=== PATIENT | male | born 1980 | race Caucasian/White ===

== ENCOUNTER → 2016-10-10 | Outpatient (REF) | payer OTHER ==
[~2016-10-10] MED LIST: VICO5TAB PO
== END | disposition home or self-care (01) ==
LOC: M LAB REF 13:00
PROVIDERS: ATTEND Nurse Practitioner Adult Health
DX: R50.9 Fever, unspecified (principal)

== ENCOUNTER 2016-10-11 10:13 | Emergency (ER) | payer OTHER ==
--- NOTE | 2016-10-11 11:05 | EDDOCDS ---
Nurse's Notes [facility] Name: Prince Huffman Age: 36 yrs Sex: Male : 1980 Arrival Date: 10/11/2016 Time: 10:13 Bed Triage 3 Private MD: Myla Soto Diagnosis: Pneumonia due to other infectious organisms, not elsewhere classified Presentation: 10/11 10:21 Presenting complaint: Patient states: Was diagnosed with pneumonia yesterday and feels jo3 worse today. Adult Sepsis Screening: The patient does not have new or worsening altered mentation. Patient's respiratory rate is less than 22. Systolic blood pressure is greater than 100. Patient has a qSOFA score of 0- Negative Sepsis Screen. Suicide/Homicide risk assessment- the patient denies having any suicidal and/or homicidal ideations and does not present with any other emotional, behavioral or mental health complaints. Status: Patient is not a customer service attendant or dependent. Transition of care: patient was not received from another setting of care. 10:21 Acuity: PING Level 3 jo3 10:21 Method Of Arrival: Walkin/Carried/Asstd jo3 Triage Assessment: 10:24 General: Appears in no apparent distress, Behavior is appropriate for age, cooperative. jo3 HIV screening NA for this visit Offered previously. Neurological: Level of Consciousness is awake, alert, Oriented to person, place, time. Respiratory: Airway is patent Respiratory effort is even, unlabored. Historical: - Allergies: No known drug Allergies; - Home Meds: 1. moxifloxacin 400 mg oral tab 1 tab once daily 2. Mucinex DM 30-600 mg oral Tb12 1 tab every 12 hours 3. nyquil as needed - PMHx: none; - PSHx: Appendectomy; left foot (club foot); - Social history: Smoking status: Patient states was never smoker of tobacco. No barriers to communication noted, The patient speaks fluent Maltese, Speaks appropriately for age. - Family history: Not pertinent. - : The pt / caregiver states he / she is not on anticoagulants. Home medication list is obtained from the patient. - Exposure Risk Screening:: None identified. Screenin:02 Screening information is obtained from the patient. Fall risk: No risks identified. jo3 Assistance ADL's: requires no assistance with activities of daily living. Abuse/DV Screen: The patient / caregiver reports he/she is: not in a situation that causes fear, pain or injury. Nutritional screening: No deficits noted. Advance Directives: There is no active DNR order. home support is adequate. Assessment: 11:02 General: Appears in no apparent distress, comfortable, Behavior is appropriate for age, jo3 cooperative. Neurological: No deficits noted. Respiratory: Airway is patent Respiratory effort is even, unlabored. Derm: Skin is pink, warm & dry. normal. Vital Signs: 10:15 BP 120 / 89; Pulse 84; Resp 20; Temp 98.0(O); Pulse Ox 100% on R/A; Weight 101.6 kg elp (R); Height 6 ft. 0 in. (182.88 cm) (R); Pain 8/10; 10:15 Body Mass Index 30.38 (101.60 kg, 182.88 cm) elp Vitals: 10:15 Log In Time: October 11, 2016 at 10:10. elp ED Course: 10:14 Patient visited by Hannah Polanco PCA. elp 10:14 Myla Soto is Private Physician. elp 10:14 Patient moved to Waiting elp 10:16 Patient visited by Hannah Polanco PCA. elp 10:16 Patient moved to Pre RCE elp 10:22 Triage Initiated jo3 10:24 Patient visited by Jennifer Sharma RN. jo3 10:43 Patient moved to Triage 3 jo3 10:46 [facility] btw 10:46 Josefina Manzano MD is Attending Physician. btw 10:46 Patient visited by Ishan Steven PA. btw 10:56 Myla Soto is Referral Physician. btw 11:02 The patient / caregiver is instructed regarding the plan of care and ED course. jo3 11:02 No IV's were initiated during this patient's visit. No procedures done that require jo3 assistance. 11:04 [facility] [place] was [place] into [employer] and attached to record. jp5 Order Results: There are currently no results for this order. Outcome: 10:57 Discharge ordered by Provider. btw 11:02 Discharge Assessment: Patient awake, alert and oriented x 3. No cognitive and/or jo3 functional deficits noted. Patient verbalized understanding of disposition instructions. patient administered narcotics - no. The following High Risk Discharge criteria are identified: None. Discharged to home ambulatory. Condition: stable. Discharge instructions given to patient, Instructed on discharge instructions, follow up and referral plans. medication usage, Demonstrated understanding of instructions, medications, Pt was receptive of discharge instructions/ teaching. Prescriptions given X 1. No special radiology studies were completed. Property sent home with patient. 11:04 Patient left the ED. jo3 Signatures: Jennifer Sharma RN RN jo3 Ishan Steven PA PA btw Patchen, Erin, MAICOL [employer] POL[employer]ER Brenda Devine jp5 MTDD
--- NOTE | 2016-10-11 11:05 | EDDOCDS ---
Physician Documentation [facility] Name: Prince Huffman Age: 36 yrs Sex: Male : 1980 Arrival Date: 10/11/2016 Time: 10:13 Bed Triage 3 Private MD: Myla Soto Disposition: 10/11/16 10:57 Discharged to Home/Self Care. Impression: Pneumonia due to other infectious organisms, not elsewhere classified. - Condition is Stable. - Discharge Instructions: Pneumonia, Adult, [id number]. - Prescriptions for Medrol (Antonio) 4 mg Oral Tablets, Dose Pack - take 1 Pack by ORAL route as directed - follow package instructions; 1 packet. - Medication Reconciliation, Local Pharmacy Hours form. - Follow up: Myla Soto; When: Call to arrange an appointment; Reason: Further diagnostic work-up, Recheck today's complaints, Continuance of care. - Problem is an ongoing problem. - Symptoms are unchanged. Historical: - Allergies: No known drug Allergies; - Home Meds: 1. moxifloxacin 400 mg oral tab 1 tab once daily 2. Mucinex DM 30-600 mg oral Tb12 1 tab every 12 hours 3. nyquil as needed - PMHx: none; - PSHx: Appendectomy; left foot (club foot); - Social history: Smoking status: Patient states was never smoker of tobacco. No barriers to communication noted, The patient speaks fluent Ukrainian, Speaks appropriately for age. - Family history: Not pertinent. - : The pt / caregiver states he / she is not on anticoagulants. Home medication list is obtained from the patient. - Exposure Risk Screening:: None identified. Vital Signs: 10/11 10:15 BP 120 / 89; Pulse 84; Resp 20; Temp 98.0(O); Pulse Ox 100% on R/A; Weight 101.6 kg / elp 223.99 lbs (R); Height 6 ft. 0 in. (182.88 cm) (R); Pain 8/10; 10:15 Body Mass Index 30.38 (101.60 kg, 182.88 cm) elp MDM: 11:04 ON LICENSE OF [facility] Payment Agreement was scanned into [employer] and attached to record. jp5 11:04 Financial registration complete. jp5 Signatures: Jennifer Sharma,RN RN jo3 Ishan Steven PA PA btw Price, Jennalee jp5 The chart was reviewed and I authenticate all verbal orders and agree with the evaluation and treatment provided.Attachments: 11:04 ON LICENSE OF [facility] Payment Agreement jp5 MTDD
--- NOTE | 2016-10-13 12:04 | EDDOCDS ---
Physician Documentation [facility] Name: Prince Huffman Age: 36 yrs Sex: Male : 1980 Arrival Date: 10/11/2016 Time: 10:13 Bed Triage 3 Private MD: Myla Soto Disposition: 10/11/16 10:57 Discharged to Home/Self Care. Impression: Pneumonia due to other infectious organisms, not elsewhere classified. - Condition is Stable. - Discharge Instructions: Pneumonia, Adult, [id number]. - Prescriptions for Medrol (Antonio) 4 mg Oral Tablets, Dose Pack - take 1 Pack by ORAL route as directed - follow package instructions; 1 packet. - Medication Reconciliation, Local Pharmacy Hours form. - Follow up: Myla Soto; When: Call to arrange an appointment; Reason: Further diagnostic work-up, Recheck today's complaints, Continuance of care. - Problem is an ongoing problem. - Symptoms are unchanged. Historical: - Allergies: No known drug Allergies; - Home Meds: 1. moxifloxacin 400 mg oral tab 1 tab once daily 2. Mucinex DM 30-600 mg oral Tb12 1 tab every 12 hours 3. nyquil as needed - PMHx: none; - PSHx: Appendectomy; left foot (club foot); - Social history: Smoking status: Patient states was never smoker of tobacco. No barriers to communication noted, The patient speaks fluent Tuvaluan, Speaks appropriately for age. - Family history: Not pertinent. - : The pt / caregiver states he / she is not on anticoagulants. Home medication list is obtained from the patient. - Exposure Risk Screening:: None identified. Vital Signs: 10/11 10:15 BP 120 / 89; Pulse 84; Resp 20; Temp 98.0(O); Pulse Ox 100% on R/A; Weight 101.6 kg / elp 223.99 lbs (R); Height 6 ft. 0 in. (182.88 cm) (R); Pain 8/10; 10:15 Body Mass Index 30.38 (101.60 kg, 182.88 cm) elp MDM: 11:04 [facility] Payment Agreement was scanned into Plink and attached to record. jp5 11:04 Financial registration complete. jp5 10/12 09:22 T-Sheet-- Draft Copy was scanned into Plink and attached to record. gb Signatures: Terri Uribe, Reg Reg Jennifer Contreras RN RN Ishan Ariza PA PA btw Price, Jennalee jp5 The chart was reviewed and I authenticate all verbal orders and agree with the evaluation and treatment provided.Attachments: 10/11 11:04 [facility] Payment Agreement jp5 10/12 09:22 T-Sheet-- Draft Copy gb Chart Complete MTDD
--- NOTE | 2016-10-13 12:04 | EDDOCDS ---
Nurse's Notes [facility] Name: Prince Huffman Age: 36 yrs Sex: Male : 1980 Arrival Date: 10/11/2016 Time: 10:13 Bed Triage 3 Private MD: Myla Soto Diagnosis: Pneumonia due to other infectious organisms, not elsewhere classified Presentation: 10/11 10:21 Presenting complaint: Patient states: Was diagnosed with pneumonia yesterday and feels jo3 worse today. Adult Sepsis Screening: The patient does not have new or worsening altered mentation. Patient's respiratory rate is less than 22. Systolic blood pressure is greater than 100. Patient has a qSOFA score of 0- Negative Sepsis Screen. Suicide/Homicide risk assessment- the patient denies having any suicidal and/or homicidal ideations and does not present with any other emotional, behavioral or mental health complaints. Status: Patient is not a surgical services asst or dependent. Transition of care: patient was not received from another setting of care. 10:21 Acuity: PING Level 3 jo3 10:21 Method Of Arrival: Walkin/Carried/Asstd jo3 Triage Assessment: 10:24 General: Appears in no apparent distress, Behavior is appropriate for age, cooperative. jo3 HIV screening NA for this visit Offered previously. Neurological: Level of Consciousness is awake, alert, Oriented to person, place, time. Respiratory: Airway is patent Respiratory effort is even, unlabored. Historical: - Allergies: No known drug Allergies; - Home Meds: 1. moxifloxacin 400 mg oral tab 1 tab once daily 2. Mucinex DM 30-600 mg oral Tb12 1 tab every 12 hours 3. nyquil as needed - PMHx: none; - PSHx: Appendectomy; left foot (club foot); - Social history: Smoking status: Patient states was never smoker of tobacco. No barriers to communication noted, The patient speaks fluent Mohawk, Speaks appropriately for age. - Family history: Not pertinent. - : The pt / caregiver states he / she is not on anticoagulants. Home medication list is obtained from the patient. - Exposure Risk Screening:: None identified. Screenin:02 Screening information is obtained from the patient. Fall risk: No risks identified. jo3 Assistance ADL's: requires no assistance with activities of daily living. Abuse/DV Screen: The patient / caregiver reports he/she is: not in a situation that causes fear, pain or injury. Nutritional screening: No deficits noted. Advance Directives: There is no active DNR order. home support is adequate. Assessment: 11:02 General: Appears in no apparent distress, comfortable, Behavior is appropriate for age, jo3 cooperative. Neurological: No deficits noted. Respiratory: Airway is patent Respiratory effort is even, unlabored. Derm: Skin is pink, warm & dry. normal. Vital Signs: 10:15 BP 120 / 89; Pulse 84; Resp 20; Temp 98.0(O); Pulse Ox 100% on R/A; Weight 101.6 kg elp (R); Height 6 ft. 0 in. (182.88 cm) (R); Pain 8/10; 10:15 Body Mass Index 30.38 (101.60 kg, 182.88 cm) elp Vitals: 10:15 Log In Time: October 11, 2016 at 10:10. elp ED Course: 10:14 Patient visited by Hannah Polanco PCA. elp 10:14 Myla Soto is Private Physician. elp 10:14 Patient moved to Waiting elp 10:16 Patient visited by Hannah Polanco PCA. elp 10:16 Patient moved to Pre RCE elp 10:22 Triage Initiated jo3 10:24 Patient visited by Jennifer Sharma RN. jo3 10:43 Patient moved to Triage 3 jo3 10:46 [facility] btw 10:46 Josefina Manzano MD is Attending Physician. btw 10:46 Patient visited by Ishan Steven PA. btw 10:56 Myla Soto is Referral Physician. btw 11:02 The patient / caregiver is instructed regarding the plan of care and ED course. jo3 11:02 No IV's were initiated during this patient's visit. No procedures done that require jo3 assistance. 11:04 [facility] Payment Agreement was scanned into [employer] and attached to record. jp5 15:00 Patient name changed from Prince\S\M\S\Nathanael\S\ to Prince\S\Syed\S\Nathanael. EDMS 10/12 09:22 T-Sheet-- Draft Copy was scanned into [employer] and attached to record. gb Order Results: There are currently no results for this order. Outcome: 10/11 10:57 Discharge ordered by Provider. btw 11:02 Discharge Assessment: Patient awake, alert and oriented x 3. No cognitive and/or jo3 functional deficits noted. Patient verbalized understanding of disposition instructions. patient administered narcotics - no. The following High Risk Discharge criteria are identified: None. Discharged to home ambulatory. Condition: stable. Discharge instructions given to patient, Instructed on discharge instructions, follow up and referral plans. medication usage, Demonstrated understanding of instructions, medications, Pt was receptive of discharge instructions/ teaching. Prescriptions given X 1. No special radiology studies were completed. Property sent home with patient. 11:04 Patient left the ED. jo3 Signatures: Dispatcher [employer] EDMS Terri Uribe, Reg Reg Jennifer Contreras,RN RN jo3 Ishan Steven PA PA btw Hannah Polanco PCA PCA elp Price, Jennalee jp5 Chart Complete JENNIFER
--- NOTE | 2016-10-13 12:04 | EDDOCDS ---
Physician Documentation [facility] Name: Prince Huffman Age: 36 yrs Sex: Male : 1980 Arrival Date: 10/11/2016 Time: 10:13 Bed Triage 3 Private MD: Myla Soto Disposition: 10/11/16 10:57 Discharged to Home/Self Care. Impression: Pneumonia due to other infectious organisms, not elsewhere classified. - Condition is Stable. - Discharge Instructions: Pneumonia, Adult, [id number]. - Prescriptions for Medrol (Antonio) 4 mg Oral Tablets, Dose Pack - take 1 Pack by ORAL route as directed - follow package instructions; 1 packet. - Medication Reconciliation, Local Pharmacy Hours form. - Follow up: Myla Soto; When: Call to arrange an appointment; Reason: Further diagnostic work-up, Recheck today's complaints, Continuance of care. - Problem is an ongoing problem. - Symptoms are unchanged. Historical: - Allergies: No known drug Allergies; - Home Meds: 1. moxifloxacin 400 mg oral tab 1 tab once daily 2. Mucinex DM 30-600 mg oral Tb12 1 tab every 12 hours 3. nyquil as needed - PMHx: none; - PSHx: Appendectomy; left foot (club foot); - Social history: Smoking status: Patient states was never smoker of tobacco. No barriers to communication noted, The patient speaks fluent Chinese, Speaks appropriately for age. - Family history: Not pertinent. - : The pt / caregiver states he / she is not on anticoagulants. Home medication list is obtained from the patient. - Exposure Risk Screening:: None identified. Vital Signs: 10/11 10:15 BP 120 / 89; Pulse 84; Resp 20; Temp 98.0(O); Pulse Ox 100% on R/A; Weight 101.6 kg / elp 223.99 lbs (R); Height 6 ft. 0 in. (182.88 cm) (R); Pain 8/10; 10:15 Body Mass Index 30.38 (101.60 kg, 182.88 cm) elp MDM: 11:04 [facility] Payment Agreement was scanned into [employer]ongping[employer] and attached to record. jp5 11:04 Financial registration complete. jp5 10/12 09:22 T-Sheet-- Draft Copy was scanned into [employer]ping[employer]ia and attached to record. gb Signatures: Terri Uribe, Reg Reg Jennifer Contreras RN RN Ishan Ariza PA PA btw Price, Jennalee jp5 The chart was reviewed and I authenticate all verbal orders and agree with the evaluation and treatment provided.Attachments: 10/11 11:04 [facility] Payment Agreement jp5 10/12 09:22 T-Sheet-- Draft Copy gb Chart Complete MTDD
== END 2016-10-11 11:04 | disposition home or self-care (01) ==
LOC: M ED 10:13
DX: J18.1 Lobar pneumonia, unspecified organism (principal); Z90.89 Acquired absence of other organs; Z79.899 Other long term (current) drug therapy

== ENCOUNTER → 2017-10-27 | Outpatient (CLI) | payer OTHER | LOC: M WUC 16:56 | DX: M54.5 Low back pain (principal) ==

== ENCOUNTER → 2018-03-17 | Outpatient (CLI) | payer OTHER | LOC: M WUC 10:52 | DX: M25.562 Pain in left knee (principal) | CPT/HCPCS: 73564 ==

== ENCOUNTER → 2018-11-19 | Outpatient (REF) | payer OTHER ==
[2018-11-19 13:52] LABS: INFLUENZA A AMPLIFICATION NEGATIVE (NEGATIVE); INFLUENZA B AMPLIFICATION NEGATIVE (NEGATIVE)
== END ==
LOC: M LAB REF 13:03
PROVIDERS: ATTEND Nurse Practitioner Adult Health
DX: J06.9 Acute upper respiratory infection, unspecified (principal)

== ENCOUNTER → 2019-05-25 | Outpatient (CLI) | payer OTHER ==
[2019-05-25 13:26] LABS: BASO # 0.1 10^3/uL (0.0-0.2); BASO % 0.6 % (0.0-1.0); EOS # 0.1 10^3/uL (0.0-0.5); EOS % 1.2 % (0.0-3.0); HEMATOCRIT 48.2 % (42.0-52.0); HEMOGLOBIN 16.4 g/dl (13.5-17.5); LYMPH # 1.9 10^3/uL (1.5-5.0); LYMPH % 24.9 % (24.0-44.0); MEAN CORPUSCULAR HEMOGLOBIN 30.4 pg (27.0-33.0); MEAN CORPUSCULAR VOLUME 89.4 fl (80.0-96.0); MONO # 0.5 10^3/uL (0.0-0.8); MONO % 6.9 % (0.0-5.0); NEUTROPHILS # 5.2 10^3/uL (1.5-8.5); PLATELET COUNT, AUTOMATED 350 10^3/uL (150-450); RED BLOOD COUNT 5.39 10^6/uL (4.30-6.10); WHITE BLOOD COUNT 7.8 10^3/uL (4.0-10.0)
[2019-05-25 13:50] LABS: ALBUMIN 4.1 GM/DL (3.2-5.2); ALT/SGPT 24 U/L (12-78); BILIRUBIN,TOTAL 0.9 MG/DL (0.2-1.0); BLOOD UREA NITROGEN 14 MG/DL (7-18); CALCIUM LEVEL 9.7 MG/DL (8.5-10.1); CARBON DIOXIDE LEVEL 27 MEQ/L (21-32); CHLORIDE LEVEL 107 MEQ/L (98-107); CREATININE FOR GFR 1.11 MG/DL (0.70-1.30); GLOMERULAR FILTRATION RATE > 60.0 (>60); GLUCOSE, FASTING 97 MG/DL (70-100); POTASSIUM SERUM 4.4 MEQ/L (3.5-5.1); SODIUM LEVEL 141 MEQ/L (136-145); TOTAL PROTEIN 7.1 GM/DL (6.4-8.2); TROPONIN I < 0.02 NG/ML (< 0.10)
--- NOTE | 2019-05-26 03:25 | REP ---
Clinical: Acute chest pain . Comparison: 11/19/2018 . Technique: PA and lateral. Findings: The mediastinum and cardiac silhouette are normal. The lung gupta are clear and without acute consolidation, effusion, or pneumothorax. The skeletal structures are intact and normal. Impression: 1. No acute cardiopulmonary process. Electronically Signed by Torres Maynard MD 05/26/2019 03:17 A
== END ==
LOC: M WUC 12:05
PROVIDERS: ATTEND Nurse Practitioner Family
DX: R07.9 Chest pain, unspecified (principal)

== ENCOUNTER → 2020-05-02 | Outpatient (CLI) | payer OTHER ==
--- NOTE | 2020-05-05 16:55 | REP ---
8-VIEWS OF THE CERVICAL SPINE REASON FOR EXAM: Trauma last week. Pain is persistent. COMPARISON: None. FINDINGS: Eight views of the cervical spine show vertebral body height and alignment to be within normal limits. Flexion and extension is not limited radiographically. The disc spaces are symmetric and well-maintained. The facet joints are well-aligned bilaterally. The intervertebral foramina are ample bilaterally. A swimmers view was not obtained. The C7-T1 level is not adequately imaged. IMPRESSION: 1. Plain radiographic evaluation of the cervical spine shows no evidence of a fracture; however, since the patient has been involved in trauma and complains of persistent pain, CT examination of the cervical spine is in order and is recommended. 2. Exam limitations as described above. MTDD
== END ==
LOC: M WUC 12:42
PROVIDERS: ATTEND Physician Assistant
DX: S13.4XXA Sprain of ligaments of cervical spine, initial encounter (principal); X58.XXXA Exposure to other specified factors, initial encounter; Y92.89 Other specified places as the place of occurrence of the external cause; Y93.9 Activity, unspecified; Y99.9 Unspecified external cause status

== ENCOUNTER → 2020-05-02 | Outpatient (CLI) | payer OTHER ==
--- NOTE | 2020-05-02 14:07 | REPVR ---
PROCEDURE INFORMATION: Exam: CT Head Without Contrast Exam date and time: 05/02/2020 1:49 PM Age: 39 years old Clinical indication: Injury or trauma; Fall; Initial encounter; Concussion / head injury; Additional info: Concussion without loc TECHNIQUE: Imaging protocol: Computed tomography of the head without contrast. Radiation optimization: All CT scans at this facility use at least one of these dose optimization techniques: automated exposure control; mA and/or kV adjustment per patient size (includes targeted exams where dose is matched to clinical indication); or iterative reconstruction. COMPARISON: No relevant prior studies available. FINDINGS: Brain: No hemorrhage. Unremarkable white matter for the patient's age. No mass effect. No evolving territorial infarct. Ventricles: No ventriculomegaly. Bones/joints: Unremarkable. No acute fracture. Sinuses: Visualized sinuses are unremarkable. No fluid levels. Mastoid air cells: Visualized mastoid air cells are well aerated. Soft tissues: Unremarkable. IMPRESSION: No acute intracranial abnormality seen. Electronically signed by: Jessy Rick On 05/02/2020 14:07:58 PM
== END ==
LOC: M RAD 13:27
PROVIDERS: ATTEND Physician Assistant
DX: S06.0X0A Concussion without loss of consciousness, initial encounter (principal); X58.XXXA Exposure to other specified factors, initial encounter; Y92.89 Other specified places as the place of occurrence of the external cause; Y93.9 Activity, unspecified; Y99.9 Unspecified external cause status

== ENCOUNTER → 2021-12-26 | Outpatient (CLI) | payer OTHER | LOC: M WUC 15:03 | PROVIDERS: ATTEND Nurse Practitioner Adult Health | DX: R07.89 Other chest pain (principal) ==

== ENCOUNTER → 2021-12-26 | Outpatient (REF) | payer OTHER | LOC: M LAB REF 17:27 | PROVIDERS: ATTEND Nurse Practitioner Adult Health | DX: M79.10 Myalgia, unspecified site (principal) ==

== ENCOUNTER → 2022-03-21 | Outpatient (CLI) | payer OTHER | LOC: M RAD 09:06 | PROVIDERS: ATTEND Otolaryngology | DX: R05.3 Chronic cough (principal) ==

== ENCOUNTER → 2023-01-02 | Outpatient (CLI) | payer OTHER | LOC: M PLAIMG 08:43 | PROVIDERS: ATTEND Nurse Practitioner Family | DX: K57.30 Diverticulosis of large intestine without perforation or abscess without bleeding (principal) ==

== ENCOUNTER 2024-09-30 16:44 | Emergency (ER) | payer OTHER ==
[~2024-09-30] VITALS: Ht 180.3 cm; Wt 109.3 kg
[2024-09-30] MEDS ORDERED: NAPR220C14 PO (16:54)
[2024-09-30] MEDS ORDERED: ENAL1TAB50 (16:54)
[2024-09-30] MEDS ORDERED: METO1TAB32 (16:54)
[2024-09-30 18:03] VITALS: BP 162/98; TEMP 98.1; O2SAT 98
== END 2024-09-30 18:16 | disposition home or self-care (01) ==
LOC: M ED 16:44
DX: S00.93XA Contusion of unspecified part of head, initial encounter (principal); F07.81 Postconcussional syndrome; Y92.019 Unspecified place in single-family (private) house as the place of occurrence of the external cause; Y93.9 Activity, unspecified; Y99.9 Unspecified external cause status; I10 Essential (primary) hypertension; Z79.1 Long term (current) use of non-steroidal anti-inflammatories (NSAID); Z79.899 Other long term (current) drug therapy

== ENCOUNTER → 2025-07-12 | Outpatient (CLI) | payer OTHER ==
[~2025-07-12] MED LIST changes: +E-Z-GAS II EFFERVESCENT PACKET (SODIUM BICARB./CITRIC ACID/SIMETHICONE) As Ordered ONE; +E-Z-HD 98% w/w 340 GM SUSP BTL As Ordered ONE; +E-Z-PAQUE 96% w/w SUSP 176 GM BTL As Ordered ONE; +ENAL1TAB50; +METO1TAB32; +NAPR220C14 PO
== END ==
LOC: M RAD 07:25
PROVIDERS: ATTEND Nurse Practitioner Adult Health
DX: R09.89 Other specified symptoms and signs involving the circulatory and respiratory systems (principal)

== ENCOUNTER → 2025-08-02 | Outpatient (CLI) | payer OTHER ==
[~2025-08-02] MED LIST changes: -E-Z-GAS II EFFERVESCENT PACKET (SODIUM BICARB./CITRIC ACID/SIMETHICONE) As Ordered ONE; -E-Z-HD 98% w/w 340 GM SUSP BTL As Ordered ONE; -E-Z-PAQUE 96% w/w SUSP 176 GM BTL As Ordered ONE; +ISOVUE-370 76% 100 ML VIAL ONE
== END ==
LOC: M PLAIMG 12:55
PROVIDERS: ATTEND Nurse Practitioner Adult Health
DX: R10.9 Unspecified abdominal pain (principal); K76.0 Fatty (change of) liver, not elsewhere classified; K57.30 Diverticulosis of large intestine without perforation or abscess without bleeding; K40.20 Bilateral inguinal hernia, without obstruction or gangrene, not specified as recurrent; Z90.49 Acquired absence of other specified parts of digestive tract
CPT/HCPCS: 74177; Q9967

== ENCOUNTER → 2025-08-16 | Outpatient (CLI) | payer OTHER ==
[~2025-08-16] MED LIST changes: -ISOVUE-370 76% 100 ML VIAL ONE
== END ==
LOC: M RAD 14:20
PROVIDERS: ATTEND Nurse Practitioner Adult Health
DX: R13.12 Dysphagia, oropharyngeal phase (principal)